=== PATIENT | female | born 1935 | race Caucasian/White ===

== ENCOUNTER → 2017-04-23 | Outpatient (CLI) | payer MEDICARE, OTHER ==
--- NOTE | 2017-04-23 16:35 | RADRPT ---
PROCEDURE: Left knee radiographs. CLINICAL INDICATION: Left knee pain. Postop. TECHNIQUE: Three views. Weight bearing. Frontal, lateral, and patellar view. COMPARISON: 03/08/2017. FINDINGS: There is no fracture or dislocation. The soft tissues are normal. 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 There is no lytic or blastic lesion. IMPRESSION: 1. Satisfactory postoperative appearance of the left knee. RPTAT: QQ .Flynn Montoya MD, MD Date Time Electronically viewed and signed by .Flynn Montoya MD, on 04/23/2017 16:35 .R/
--- NOTE | 2017-04-24 06:10 | HKNOTE ---
DATE OF SERVICE: 04/23/2017 MAIN COMPLAINT: Pain in the left knee. HISTORY OF MAIN COMPLAINT: Patient is an 81-year-old female who has been under my care for almost 4 0 years. I performed 2 hip replacements on her approximately 40 years ago and 2 knee replacements a pproximately 20 years ago. She has been extremely pleased with the results of all these surgeries a nd has had no problems with any of these joints until she took a fall about 6 weeks ago. She trippe d on a chair in her house. It is very difficult for her to get up. She subsequently had a course o f physical therapy and when she is trying to get up from a sitting position on the floor, she had fu rther pain in her knee. Note that she has not had any recent infections. PRESENT COMPLAINTS: The knee does not swell, does not lock, and does not feel unstable. Pain is ag gravated by walking and weightbearing. She is not able to run. She can manage stairs. She does no t get any rest pain or night pain. She is not taking any medications for the pain. She has a histo ry of sciatica. She has only been treated with cortisone injections. On a level surface she can wa lk "as far as I need". She occasionally uses a cane. When she is in pain, she limps PAST ORTHOPEDIC HISTORY: As noted above. In addition, the patient has had shoulder replacement by Dr. Klein. She also had neck spine surgery by Dr. Webster 10 years ago and hand surgery by Dr. Ray 2 years ago. HOBBIES AND WORK: The patient is a musician and enjoys playing the piano. PAST MEDICAL HISTORY: 1. Hypertension. 2. Mitral valve regurgitation. ALLERGIES: LATEX, DEMEROL. MEDICATIONS: See attached list. PHYSICAL EXAMINATION GENERAL: An extremely fit looking 81-year-old female. VITAL SIGNS: Height 5 feet 6 inches, weight 174 pounds, blood pressure 148/65, temperature 98.3. Note that patient recently voluntarily lost weight by dieting. Over the past 6 months she has lost 25 pounds! MUSCULOSKELETAL: Patient's gait is normal. She walks without a walking aid. EXAMINATION OF THE LEFT KNEE: A full range of motion without pain. No external sign of infection o r inflammation. No effusion. All ligaments are intact. No tenderness anywhere around the knee. EXAMINATION OF THE RIGHT KNEE: A full range of motion without pain. No external sign of infection or inflammation. No effusion. All ligaments are intact. No tenderness anywhere around the knee. IMAGING: Plain x-rays of the left knee obtained today remarkably show that this 20-year-old knee se ems to be well attached to the bone. The components are well aligned. No evidence of loosening or any other worrisome problem. MANAGEMENT: The patient is given reassurance that all components appear to be satisfactory. She wa s warned however that the x-rays can be miss any loosening of the components. If she still has any pain a month from now, she will call my assistant manager airside operations, Nisreen, who will order a CAT scan of the knee and then she will see me again thereafter. Dictated By: MICHELLE MARCELO/SHAREE Conf#: [id number] DID#: [id number]
== END | disposition home or self-care (01) ==
LOC: HKI 10:08
DX: M25.562 Pain in left knee (principal); I10 Essential (primary) hypertension; I34.0 Nonrheumatic mitral (valve) insufficiency
CPT/HCPCS: 73562; G0463